=== PATIENT | male | born 1995 ===

== ENCOUNTER 2024-03-26 07:16 | Outpatient (CLI) | payer OTHER ==
--- NOTE | 2024-03-26 14:53 | MRI Report ---
PROCEDURE: Elbow RT WO INDICATIONS: R ELBOW PAIN TECHNIQUE: Noncontrast coronal proton density fast spin echo and T2 fast spin echo with fat saturation, axial an d sagittal T1 spin echo and T2 fast spin echo with fat saturation through the elbow. COMPARISON: None. FINDINGS: Image quality: Excellent. Lateral structures: The lateral ulnar collateral ligament and radial collateral ligament both appear intact. The overlying common extensor tendon also appears normal. Medial structures: The ulnar collateral ligament appears mildly thickened at its medial epicondylar insertion. The overlying common flexor tendon also appears thickened with intrasubstance T2 hyperint ense signal at its medial epicondylar insertion. The ulnar nerve appears normal in size and signal wi thin the cubital tunnel. Anterior structures: The biceps and brachialis tendons both appear intact as they insert onto the pr oximal radius and ulna, respectively. No bicipitoradial bursal fluid. The median and radial neurova scular bundles appear normal; no focal muscle atrophy to suggest nerve impingement. Posterior structures: Distal triceps tendinosis at its proximal olecranon insertion is seen. No olecr anon bursal fluid. Bone and cartilage: No bone marrow contusions or fractures. No osteochondral injuries. IMPRESSION: 1. Finding is suggestive of mild medial epicondylitis with sprain of proximal ulnar collateral ligame nt and low-grade partial-thickness tear involving common flexor tendon origin. 2. Distal triceps tendinosis at its proximal olecranon insertion. 3. No marrow edema. No fracture or dislocation. No significant joint effusion. 4. Rest of the elbow tendons and ligaments are intact. Reviewed by: Juventino Candelaria MD on 03/26/2024 2:52 PM PDT Approved by: Juventino Candelaria MD on 03/26/2024 2:52 PM PDT Station ID: [id number]
== END 2024-03-26 07:17 | disposition home or self-care (01) ==
LOC: DI 07:16
PROVIDERS: ATTEND Preventive Medicine Aerospace Medicine
DX: M67.921 Unspecified disorder of synovium and tendon, right upper arm (principal)